=== PATIENT | male | born 1955 | race Caucasian/White ===

== ENCOUNTER 2018-12-13 15:04 | Emergency (ER) | payer SELFPAY ==
[2018-12-13 15:06] VITALS: BP 160/83; Ht 177.8 cm
== END 2018-12-13 18:35 | disposition home or self-care (01) ==
LOC: ED 15:04
DX: S42.032A Displaced fracture of lateral end of left clavicle, initial encounter for closed fracture (principal); X58.XXXA Exposure to other specified factors, initial encounter; Y93.89 Activity, other specified; Y92.89 Other specified places as the place of occurrence of the external cause; Y99.8 Other external cause status
CPT/HCPCS: Q0162